=== PATIENT | female | born 1985 | race Caucasian/White ===

== ENCOUNTER 2018-10-11 20:29 | Emergency (ER) | payer OTHER ==
[~2018-10-11] VITALS: Ht 157.5 cm; Wt 54.4 kg
[2018-10-11 21:47] LABS: HEMATOCRIT 33.8 % (37.0-47.0); HEMOGLOBIN 10.6 gm/dL (12.0-15.0); MCH 18.1 pg (26.0-34.0); MCHC 31.3 g/dL (28.0-37.0); MCV 57.7 fL (80.0-100.0); PLATELET COUNT 339 thou/uL (150-400); RBC 5.86 mil/uL (4.20-5.00); RDW 17.1 % (10.5-14.5); WBC 13.2 thou/uL (4.0-11.0)
[2018-10-11 21:56] LABS: CALCIUM 9.1 mg/dL (8.5-10.1); CREATININE 0.6 mg/dL (0.6-1.0); POTASSIUM 3.4 mmol/L (3.5-5.1)
[2018-10-11 23:02] LABS: ABSOLUTE NEUTROPHILS 9.8 thou/uL (1.4-8.2)
[2018-10-11 23:04] LABS: ANISOCYTOSIS 1+; HYPOCHROMASIA 3+; MICROCYTES 3+; PLATELET ESTIMATE NORMAL; POLYCHROMASIA OCCASIONAL; SCHISTOCYTES FEW
[2018-10-11] MEDS ORDERED: CLEOCIN HCL150 MG PO (23:15)
[2018-10-11] MEDS ORDERED: NAPROSYN500 MG PO (23:15)
[2018-10-11] MEDS ORDERED: CEPACOL SORE T1 EAC7 PO (23:15)
[2018-10-11 23:17] VITALS: BP 99/65
== END 2018-10-11 23:19 | disposition home or self-care (01) ==
LOC: ER 20:29
PROVIDERS: Nurse Practitioner Family
DX: J02.0 Streptococcal pharyngitis (principal); R59.1 Generalized enlarged lymph nodes

== ENCOUNTER 2018-10-15 14:54 | Inpatient (IN) | payer OTHER ==
[~2018-10-15] VITALS: Ht 160 cm; Wt 52.2 kg
[~2018-10-15 14:54] MED LIST: CEPACOL SORE T1 EAC7 PO; CLEOCIN HCL150 MG PO; NAPROSYN500 MG PO
[2018-10-15 14:58] VITALS: BP 93/65
--- NOTE | 2018-10-15 15:54 | NUR ---
PROVIDER AT BEDSIDE FOR EXAM.
[2018-10-15 16:34] LABS: HEMATOCRIT 32.5 % (37.0-47.0); HEMOGLOBIN 10.2 gm/dL (12.0-15.0); MCH 18.2 pg (26.0-34.0); MCHC 31.3 g/dL (28.0-37.0); PLATELET COUNT 430 thou/uL (150-400); RDW 17.6 % (10.5-14.5); WBC 12.2 thou/uL (4.0-11.0)
[2018-10-15 16:43] LABS: CALCIUM 9.2 mg/dL (8.5-10.1); CREATININE 0.6 mg/dL (0.6-1.0); POTASSIUM 4.1 mmol/L (3.5-5.1)
[2018-10-15 16:49] LABS: TOTAL BILIRUBIN 0.5 mg/dL (<0.1-1.0); TOTAL PROTEIN 8.7 g/dL (6.4-8.2)
[2018-10-15 17:00] LABS: ANISOCYTOSIS 1+; HYPOCHROMASIA SLIGHT; MICROCYTES 2+; POLYCHROMASIA OCCASIONAL; TARGET CELLS OCCASIONAL
[2018-10-15 20:16] VITALS: BP 94/69
[2018-10-15 20:45] VITALS: BP 101/59
--- NOTE | 2018-10-16 02:25 | NUR ---
ADMITTED TO 4E FLOOR TO BED 424. SEEN IN ED FOR SORE THROAT. PERITONSILLAR ABSCESS DRAINED. HX OF CLINDAMYCIN FROM 10/11/18. ADMISSION AND ASSESSMENT AA&OX4. NKDA. NS@125 ML/HR. VSS CURRENT PAIN 2/10 IN THROAT ON THE R SIDE.
[2018-10-16 04:00] VITALS: BP 108/48
[2018-10-16 04:37] VITALS: BP 98/58
[2018-10-16 07:40] VITALS: BP 97/57
[2018-10-16] MEDS ORDERED: PERCOCET PO (07:57)
[2018-10-16] MEDS ORDERED: HYDROCODONE-ACE15 ML PO (07:57)
[2018-10-16] MEDS ORDERED: AUGMENTIN600 MG/5 M PO (07:59)
--- NOTE | 2018-10-16 12:17 | NUR ---
PT ADMITTED RELATED TO PERITONSILLAR ABSCESS. CM REVIEWED CHART AND SPOKEW WITH CARE TEAM. CM MET WITH PT AND SPOUSE AT BEDSIDE THIS DAY. PT INDICATED THEY LIVE IN A RANCH STYLE APARTMENT WITH NO STEPS TO ENTER AND NO STEPS INSIDE. PT INDICATED SHE IS EMPLOYED BUT DOESN'T HAVE INSURANCE THROUGH EMPLOYER. THEY INDICATED THEY WERE INTERESTED IN [facility]ANARC VISITING. CM FAXED FACE SHEET. CM PROVIDED [facility] PT DOESN'T HAVE A PCP. THEY INDICATED THE MIGHT HAVE DIFFICULTY PAYING FOR MEDICATIONS THAT MIGHT BE PERSCRIBED. CM TO HOLLAND OUT MEDS AND LET THEM KNOW COST. IT IS ANTICPATED THAT PT WILL DISCHARGE HOME TODAY. CM TO FOLLOW INDICATED WITH DC PLANNING.
[2018-10-16 13:04] VITALS: BP 97/57
--- NOTE | 2018-10-16 14:53 | NUR ---
CM PRICES OUT PT'S TWO MEDS IN THE PHARMACY AND THEY CAME TO $33.77. THEY INDICATED THAT THEY WERE ABLE TO AFFORD THOSE MEDICATIONS. [employer] VISITED PT AND SPOUSE AND PROVIDED LUIS FOR FINIANCIAL ASSISTANCE. NO OTHER CM INTERVENTION INDICATED AT THIS TIME. CASE CLOSED.
--- NOTE | 2018-10-16 18:09 | HC ---
[facility] [place] [address] CONSULTATION Name: DEYA FALLON Room #: 424-P [facility] IN M.R.#: [id number] Admission: 10/15/18 Attend Phys: Dante Clinton MD Discharge: 10/16/18 Date of : 83 Report #: [id number] THIS REPORT FOR: //name// CC: NO PCP Dante Clinton MD DATE OF SERVICE: 10/15/2018 CORE LOADER: Duncan Tejeda MD SPECIALTY: Otolaryngology. REASON FOR CONSULTATION: Peritonsillar abscess. CHIEF COMPLAINT: Right throat pain. HISTORY OF PRESENT ILLNESS: The patient is a 33-year-old female who was seen and treated with clindamycin for tonsillitis and pharyngitis. Her throat pain has worsened. She presented back to the Emergency Room with right-sided pain and trismus. She also has right-sided ear pain. CT scan demonstrates a loculated right peritonsillar abscess. PAST MEDICAL HISTORY: Unremarkable. MEDICATIONS ON ADMISSION: None. ALLERGIES: None. SOCIAL HISTORY: with 2 children. No tobacco, no alcohol. PHYSICAL EXAMINATION: GENERAL: Pleasant, but uncomfortable young lady, but in no acute distress. EARS: Normal tympanic membranes. NOSE: Normal mucosa. NECK: Tender right cervical adenopathy. OROPHARYNX: Marked right soft palate swelling. NEUROLOGIC: Cranial nerves normal. ASSESSMENT: Right peritonsillar abscess. PLAN: 1. Incision and drainage, right peritonsillar abscess in the Emergency Room under local anesthesia. 2. Intravenous Unasyn x 24 hours. 3. Intravenous Decadron. [facility] [address] [place] [address] CONSULTATION Name: DEYA FALLON Room #: 424-P [facility] IN .R.#: [id number] Admission: 10/15/18 Attend Phys: Dante Clinton MD Discharge: 10/16/18 Date of : 83 Report #: [id number] 4. Outpatient treatment with Augmentin 875 mg b.i.d. 5. Pain medications. <ELECTRONICALLY SIGNED> By: Duncan Tejeda MD 10/16/18 1809 1842 1859 Duncan Tejeda MD /nt
--- NOTE | 2018-10-16 18:09 | O ---
[facility] [place] [address] OPERATIVE REPORT Name: DEYA FALLON Room #: 424-P [facility] IN M.R.#: [id number] Admission: 10/15/18 Attend Phys: Dante Clinton MD Discharge: 10/16/18 Date of : 83 Report #: [id number] THIS REPORT FOR: //name// CC: NO PCP Dante Clinton MD DATE OF SERVICE: 10/15/2018 SURGEON: Duncan Tejeda M.D. PREOPERATIVE DIAGNOSIS: Right peritonsillar abscess. POSTOPERATIVE DIAGNOSIS: Right peritonsillar abscess. OPERATIVE PROCEDURE: Incision and drainage, right peritonsillar abscess. ANESTHESIA: Local. DESCRIPTION OF PROCEDURE: The patient was given some intravenous morphine by the nursing staff. The right soft palate area was examined. I injected 7 mL of 1% lidocaine 1:100,000 epinephrine. I then used an 18-gauge needle and a syringe and aspirated about 6 mL of pus from the right peritonsillar space. I then used an 11 blade knife to make a 2-cm incision in the soft palate. We used Radha forceps to widely open the abscess cavity. I inserted the baby Yankauer suction into the abscess cavity and evacuated it. The patient tolerated the procedure. She will be observed in the hospital overnight with intravenous fluids, sedation, intravenous fluids, pain medications, dexamethasone, IV Unasyn. She will then be discharged on Augmentin 875 mg b.i.d. <ELECTRONICALLY SIGNED> By: Duncan Tejeda MD 10/16/18 1809 1844 1910 Duncan Tejeda MD /nt
== END 2018-10-16 15:06 | disposition home or self-care (01) | DRG 134 ==
LOC: ER 14:54 → 4E 18:40 → EROBS 18:40 → 4E 20:18
PROVIDERS: Emergency Medicine; ADMIT Family Medicine
DX: J36 Peritonsillar abscess (principal)
CPT/HCPCS: 10084